=== PATIENT | female | born 1990 | race Caucasian/White ===

== ENCOUNTER 2017-06-18 02:17 | Day surgery (SDC) | payer BC ==
[2017-06-18] MEDS ORDERED: Ondansetron 4 MG/2 ML SDV IVPUSH ONE (02:30)
[2017-06-18] MEDS ORDERED: Sodium Chloride 0.9% 1,000 ML IV ONE (02:32)
--- NOTE | 2017-06-18 03:02 | EDM.PDOC ---
<Deven Fuchs - Last Filed: 06/18/17 06:52> ED HPI GENERAL MEDICAL PROBLEM - General Chief Complaint: Abdominal Pain Stated Complaint: ABDOMINAL PAIN, VOMITING Time Seen by Provider: 06/18/17 02:35 Source of Information: Reports: Patient History Limitations: Reports: No Limitations - History of Present Illness INITIAL COMMENTS - FREE TEXT/NARRATIVE: HISTORY AND PHYSICAL: History of present illness: [26-year-old female no prior abdominal history now presents to the emergency department, complaining of right upper quadrant abdominal pain. Last night patient 8 at [facility] and shortly thereafter had the onset of right upper quadrant pain which was at times severe. She had nausea with vomiting. No fevers chills sweats or shaking chills. Pain was sudden in onset. It does wax and wane. She has normal bowel and bladder habits. No flank pain. Patient does not think she is but she is not completely sure. Review of systems: As per history of present illness and below otherwise all systems reviewed and negative. Past medical history: As per history of present illness and as reviewed below otherwise noncontributory. Surgical history: As per history of present illness and as reviewed below otherwise noncontributory. Social history: No reported history of drug or alcohol abuse. Family history: As per history of present illness and as reviewed below otherwise noncontributory. Physical exam: Well-appearing patient mildly anxious clear lungs regular rate and rhythm positive right abdominal tenderness, right upper quadrant greater than right lower quadrant. No guarding or rebound normal bowel sounds remainder abdomen is benign . No CVA tenderness. HEENT: Atraumatic, normocephalic, pupils reactive, negative for conjunctival pallor or scleral icterus, mucous membranes moist, throat clear, neck supple, nontender, trachea midline. Lungs: Clear to auscultation, breath sounds equal bilaterally, chest nontender. Heart: S1S2, regular, negative for clicks, rubs, or JVD. Abdomen: Soft, nondistended, Negative for masses or hepatosplenomegaly. Negative for costovertebral tenderness. Pelvis: Stable nontender. Genitourinary: Deferred. Rectal: Deferred. Extremities: Atraumatic, negative for cords or calf pain. Neurovascular unremarkable. Neuro: Awake, alert, oriented. Exam nonfocal. Diagnostics: [Ultrasound the abdomen and full labs pending. Therapeutics: []Analgesia and IV fluids given Impression: Abdominal pain leukocytosis Adnexal cyst Plan: [Signs and symptoms consistent with possible biliary colic after eating chicken wings. Patient is stable in the emergency department. Subcostal tenderness right upper quadrant And mild right abdominal tenderness. No guarding or rebound.Full workup pending] patient with elevated white blood cell count at 17. Ultrasound unremarkable with no evidence of gallbladder pathology. Remainder of labs benign. Urinalysis not consistent with infection. CT the abdomen and pelvis pending CT shows enlarged appendix but without pericecal inflammatory changes. On reevaluation she has no right upper quadrant tenderness and mild right lower quadrant tenderness. No guarding or rebound. Normal bowel sounds. She is hemodynamically stable IV fluids will be continued. Case discussed with Dr. Timothy Eid surgery bi consultant. Dr. Eid's aware the history and findings and will see the patient in the emergency department for stat consultation and disposition.Case signed out to Dr. China Jacques to assume care collaborate with Dr. Eid and disposition patient. Definitive disposition and diagnosis as appropriate pending reevaluation and review of above. abdominal area Pain Score (Numeric/FACES): 8 - Related Data Allergies Allergy/AdvReac Type Severity Reaction Status Date / Time amoxicillin [Amoxicillin] Allergy Cannot Verified 06/18/17 02:25 Remember Penicillins Allergy Cannot Verified 06/18/17 02:25 Remember venom-honey bee Allergy Other Verified 06/18/17 02:25 [bee venom (honey bee)] Home Meds: Home Meds . [No Known Home Meds] 06/18/17 [History] Past Medical History HEENT History: Reports: None Cardiovascular History: Reports: None Respiratory History: Reports: Asthma Gastrointestinal History: Reports: None Genitourinary History: Reports: None CREDIT SPECIALIST History: Reports: Musculoskeletal History: Reports: None Neurological History: Reports: None Psychiatric History: Reports: Anxiety Endocrine/Metabolic History: Reports: None Hematologic History: Reports: None Immunologic History: Reports: None Oncologic (Cancer) History: Reports: None Dermatologic History: Reports: None - Infectious Disease History Infectious Disease History: Reports: None - Past Surgical History HEENT Surgical History: Reports: Tonsillectomy Social & Family History - Family History Family Medical History: Noncontributory - Tobacco Use Smoking Status *Q: Never Smoker Second Hand Smoke Exposure: No - Caffeine Use Caffeine Use: Reports: Coffee - Alcohol Use Days Per Week of Alcohol Use: 0 Number of Drinks Per Day: 0 Total Drinks Per Week: 0 - Recreational Drug Use Recreational Drug Use: No Drug Use in Last 12 Months: No ED ROS GENERAL - Review of Systems Review Of Systems: See Below (History of present illness) ED EXAM, GENERAL - Physical Exam Exam: See Below (History of present illness) Course - Vital Signs Last Recorded V/S: Last Vital Signs Temp 36.8 C 06/18/17 06:44 Pulse 59 L 06/18/17 06:44 Resp 18 06/18/17 06:44 BP 110/56 L 06/18/17 06:44 Pulse Ox 98 06/18/17 06:44 - Orders/Labs/Meds Orders: Active Orders 24 hr Category Date Time Status Patient Status [ADT] Stat ADT 06/18/17 10:11 Ordered Notify Provider Consults [RC] ASDIRECTED Care 06/18/17 07:33 Active Consult to Physician [CONS] Stat Cons 06/18/17 07:32 Active Abdomen Pelvis w Cont [CT] Stat Exams 06/18/17 05:29 Taken Gallbladder [Abdomen Ltd] [US] Stat Exams 06/18/17 03:03 Taken Lactated Ringers @ 125 MLS/HR(1,000ml) Med 06/18/17 10:15 Ordered Lactated Ringers [Ringers, Lactated] 1,000 ml IV ASDIRECTED Sodium Chloride 0.9% [Normal Saline] 1,000 ml Med 06/18/17 06:45 Active IV ASDIRECTED cefOXitin [Mefoxin in Dextrose,Iso-Osm 2 GM/50 ML] 2 gm Med 06/18/17 10:12 Ordered Premix Bag 1 bag IV ONETIME Medication Orders Sodium Chloride (Normal Saline) 1,000 mls @ 999 mls/hr IV ASDIRECTED EFFIE Last Admin: 06/18/17 06:43 Dose: 999 mls/hr Lactated Ringer's (Ringers, Lactated) 1,000 mls @ 125 mls/hr IV ASDIRECTED EFFIE Cefoxitin Sodium 2 gm/ Premix 50 mls @ 100 mls/hr IV ONETIME ONE Stop: 06/18/17 10:41 Labs: Laboratory Tests 06/18/17 06/18/17 06/18/17 Range/Units 02:30 02:30 02:30 WBC 17.46 H (4.0-11.0) K/uL RBC 4.91 (4.30-5.90) M/uL Hgb 14.1 (12.0-16.0) g/dL Hct 41.7 (36.0-46.0) % MCV 84.9 (80.0-98.0) fL MCH 28.7 (27.0-32.0) pg MCHC 33.8 (31.0-37.0) g/dL RDW Std Deviation 40.3 (28.0-62.0) fl RDW Coeff of Tony 13 (11.0-15.0) % Plt Count 396 (150-400) K/uL MPV 9.90 (7.40-12.00) fL Neut % (Auto) 80.0 (48.0-80.0) % Lymph % (Auto) 14.9 L (16.0-40.0) % [place] % (Auto) 4.7 (0.0-15.0) % Eos % (Auto) 0.3 (0.0-7.0) % Baso % (Auto) 0.1 (0.0-1.5) % Neut # (Auto) 14.0 H (1.4-5.7) K/uL Lymph # (Auto) 2.6 H (0.6-2.4) K/uL [place] # (Auto) 0.8 (0.0-0.8) K/uL Eos # (Auto) 0.1 (0.0-0.7) K/uL Baso # (Auto) 0.0 (0.0-0.1) K/uL Nucleated RBC % 0.0 /100WBC Nucleated RBCs # 0 K/uL Sodium 138 (136-146) mmol/L Potassium 3.9 (3.5-5.1) mmol/L Chloride 105 (98-110) mmol/L Carbon Dioxide 21 (21-31) mmol/L BUN 12 (6.0-23.0) mg/dL Creatinine 0.8 (0.6-1.5) mg/dL Est Cr Clr Drug Dosing 84.28 mL/min Estimated GFR (MDRD) > 60.0 ml/min Glucose 113 H (60-110) mg/dL Calcium 9.9 (8.8-10.8) mg/dL Total Bilirubin 0.9 (0.1-1.5) mg/dL AST 15 (5-40) IU/L ALT 16 (8-54) IU/L Alkaline Phosphatase 70 (40-150) Total Protein 8.1 H (6.0-8.0) g/dL Albumin 4.5 (3.5-5.0) g/dL Globulin 3.6 H (2.0-3.5) g/dL Albumin/Globulin Ratio 1.3 (1.3-2.8) Lipase (7-80) U/L Urine Color Urine Appearance Urine pH (5.0-8.0) Ur Specific [place] (1.001-1.035) Urine Protein (NEGATIVE) mg/dL Urine Glucose (UA) (NEGATIVE) mg/dL Urine Ketones (NEGATIVE) mg/dL Urine Occult Blood (NEGATIVE) Urine Nitrite (NEGATIVE) Urine Bilirubin (NEGATIVE) Urine Urobilinogen (<2.0) EU/dL Ur Leukocyte Esterase (NEGATIVE) Urine RBC (0-2/HPF) Urine WBC (0-5/HPF) Ur Epithelial Cells (NONE-FEW) Urine Bacteria (NEGATIVE) Urine Mucus (NONE-MOD) Urine HCG, Qual NEGATIVE (NEGATIVE) 06/18/17 06/18/17 Range/Units 02:30 02:30 WBC (4.0-11.0) K/uL RBC (4.30-5.90) M/uL Hgb (12.0-16.0) g/dL Hct (36.0-46.0) % MCV (80.0-98.0) fL MCH (27.0-32.0) pg MCHC (31.0-37.0) g/dL RDW Std Deviation (28.0-62.0) fl RDW Coeff of Tony (11.0-15.0) % Plt Count (150-400) K/uL MPV (7.40-12.00) fL Neut % (Auto) (48.0-80.0) % Lymph % (Auto) (16.0-40.0) % [place] % (Auto) (0.0-15.0) % Eos % (Auto) (0.0-7.0) % Baso % (Auto) (0.0-1.5) % Neut # (Auto) (1.4-5.7) K/uL Lymph # (Auto) (0.6-2.4) K/uL [place] # (Auto) (0.0-0.8) K/uL Eos # (Auto) (0.0-0.7) K/uL Baso # (Auto) (0.0-0.1) K/uL Nucleated RBC % /100WBC Nucleated RBCs # K/uL Sodium (136-146) mmol/L Potassium (3.5-5.1) mmol/L Chloride (98-110) mmol/L Carbon Dioxide (21-31) mmol/L BUN (6.0-23.0) mg/dL Creatinine (0.6-1.5) mg/dL Est Cr Clr Drug Dosing mL/min Estimated GFR (MDRD) ml/min Glucose (60-110) mg/dL Calcium (8.8-10.8) mg/dL Total Bilirubin (0.1-1.5) mg/dL AST (5-40) IU/L ALT (8-54) IU/L Alkaline Phosphatase (40-150) Total Protein (6.0-8.0) g/dL Albumin (3.5-5.0) g/dL Globulin (2.0-3.5) g/dL Albumin/Globulin Ratio (1.3-2.8) Lipase 13 (7-80) U/L Urine Color YELLOW Urine Appearance CLEAR Urine pH 6.0 (5.0-8.0) Ur Specific [place] >= 1.030 (1.001-1.035) Urine Protein TRACE (NEGATIVE) mg/dL Urine Glucose (UA) NEGATIVE (NEGATIVE) mg/dL Urine Ketones TRACE H (NEGATIVE) mg/dL Urine Occult Blood SMALL H (NEGATIVE) Urine Nitrite NEGATIVE (NEGATIVE) Urine Bilirubin NEGATIVE (NEGATIVE) Urine Urobilinogen 0.2 (<2.0) EU/dL Ur Leukocyte Esterase NEGATIVE (NEGATIVE) Urine RBC 0-3 (0-2/HPF) Urine WBC 0-1 (0-5/HPF) Ur Epithelial Cells FEW (NONE-FEW) Urine Bacteria RARE (NEGATIVE) Urine Mucus LIGHT (NONE-MOD) Urine HCG, Qual (NEGATIVE) Meds: Medications Generic Name Dose Route Start Last Admin Trade Name Freq PRN Reason Stop Dose Admin Sodium Chloride 1,000 mls @ 999 mls/hr 06/18/17 06:45 06/18/17 06:43 Normal Saline IV 999 mls/hr ASDIRECTED EFFIE Administration Lactated Ringer's 1,000 mls @ 125 mls/hr 06/18/17 10:15 Ringers, Lactated IV ASDIRECTED EFFIE Cefoxitin Sodium 2 gm/ Premix 50 mls @ 100 mls/hr 06/18/17 10:12 IV 06/18/17 10:41 ONETIME ONE Discontinued Medications Generic Name Dose Route Start Last Admin Trade Name Rhea PRN Reason Stop Dose Admin Sodium Chloride 1,000 mls @ 999 mls/hr 06/18/17 02:32 06/18/17 02:39 Normal Saline IV 06/18/17 03:32 999 mls/hr .Bolus ONE Administration Ketorolac Tromethamine 30 mg 06/18/17 03:11 06/18/17 03:14 Toradol IVPUSH 06/18/17 03:12 30 mg ONETIME ONE Administration Ketorolac Tromethamine Confirm 06/18/17 03:10 06/18/17 03:15 Toradol Administered 06/18/17 03:11 Not Given Dose 30 mg .ROUTE .STK-MED ONE Ondansetron HCl 4 mg 06/18/17 02:30 06/18/17 02:39 Zofran IVPUSH 06/18/17 02:31 4 mg ONETIME ONE Administration Departure - Departure Disposition: Refer to Observation Condition: Good, Fair Clinical Impression: Appendicitis Qualifiers: Appendicitis type: acute appendicitis Acute appendicitis type: unspecified acute appendicitis type Qualified Code(s): K35.80 - Unspecified acute appendicitis - Discharge Information Instructions: Abdominal Pain, Adult, [id number] Referrals: PCP,None [Primary Care Provider] - Forms: ED Department Discharge - My Orders Last 24 Hours: My Active Orders 06/18/17 07:32 Consult to Physician [CONS] Stat 06/18/17 07:33 Notify Provider Consults [RC] ASDIRECTED 06/18/17 10:11 Patient Status [ADT] Stat 06/18/17 10:12 cefOXitin [Mefoxin in Dextrose,Iso-Osm 2 GM/50 ML] 2 gm Premix Bag 1 bag IV ONETIME 06/18/17 10:15 Lactated Ringers @ 125 MLS/HR(1,000ml) Lactated Ringers [Ringers, Lactated] 1, 000 ml IV ASDIRECTED - Assessment/Plan Last 24 Hours: My Active Orders 06/18/17 07:32 Consult to Physician [CONS] Stat 06/18/17 07:33 Notify Provider Consults [RC] ASDIRECTED 06/18/17 10:11 Patient Status [ADT] Stat 06/18/17 10:12 cefOXitin [Mefoxin in Dextrose,Iso-Osm 2 GM/50 ML] 2 gm Premix Bag 1 bag IV ONETIME 06/18/17 10:15 Lactated Ringers @ 125 MLS/HR(1,000ml) Lactated Ringers [Ringers, Lactated] 1, 000 ml IV ASDIRECTED <China Jacques - Last Filed: 06/18/17 10:15> ED HPI GENERAL MEDICAL PROBLEM - History of Present Illness INITIAL COMMENTS - FREE TEXT/NARRATIVE: This is Dr. Jacques dictating an addendum note as I'm assume care of this patient at [address] Eid has been here and evaluated the patient and reviewed the CT scan. He does not feel that this is appendicitis and is recommending a pelvic ultrasound. He will do a formal consult so please see his note for that information. Patient is aware of this care plan and we will proceed with those results as appropriate. She clinically is improved with improved pain and actually told Dr. Eid she was hungry. We will keep her nothing by mouth. 0840: Dr Rader our radiologist contacted me and says that the pelvic ultrasound reveals no significant findings to correlate with the patient's WBC count and her pain. He has re-reviewed the CT scan done early this morning and he suspects tip appendicitis as the tip of the appendix measures [address] Eid was made aware of these results at 08 49 and he is contacting Dr. Terry who is currently the surgeon on-call to evaluate the patient for care plan. 0915: According to reports from the nurse supervisor cartography is finishing with the patient in clinic and is going to come to the ER to review the CAT scan and evaluate the patient himself. 1010: Dr Terry has seen and evaluated the patient and he will take her to same-day surgery for appendectomy. He asks for Mefoxin to be given an LR at 125. Patient is aware of this plan and accepts. Freshened: Tip appendicitis Departure - Departure Time of Disposition: 10:14 Condition: Good
[2017-06-18 03:09] LABS: CHLORIDE,CL 105 mmol/L (98-110); SODIUM,NA 138 mmol/L (136-146)
[2017-06-18] MEDS ORDERED: Ketorolac 30 MG/ML SDV ONE (03:10)
[2017-06-18] MEDS ORDERED: Ketorolac 30 MG/ML SDV IVPUSH ONE (03:11)
[2017-06-18] MEDS ORDERED: Sodium Chloride 0.9% 1,000 ML IV SCH (06:45)
--- NOTE | 2017-06-18 08:46 | US ---
EXAMINATION: Transvaginal pelvic ultrasound HISTORY: Pain COMPARISON: CT from the same day TECHNIQUE: Grayscale, spectral Doppler and color Doppler images obtained transvaginally. FINDINGS: The uterus is normal in size, contour, and echogenicity without a focal uterine mass. Endo metrial stripe thickness measures 1.2 cm. There is a small amount of free pelvic fluid. The right ovary is mildly enlarged measuring 3.5 x 2.7 x 3.3 cm and contains a few small cysts measu ring up to 2.5 cm. The left ovary appears normal in size, contour, and echogenicity. Both ovaries de monstrate normal color and spectral Doppler flow. IMPRESSION: 1. Several small right ovarian cyst noted measuring up to 2.5 cm. 2. Small amount of free pelvic fluid.
--- NOTE | 2017-06-18 09:39 | PCM.CONS ---
H&P History of Present Illness - General Date of Service: 06/18/17 Admit Problem/Dx: Abdominal pain Source of Information: Patient History Limitations: Reports: No Limitations - History of Present Illness Symptom Onset Date: 06/17/17 Duration of Symptoms: Reports: Getting Worse Location: Reports: Abdomen Quality: Reports: Pressure Severity: Moderate Improves with: Reports: Rest Worsens with: Reports: None Context: Reports: Sick Contact Associated Symptoms: Reports: Nausea/Vomiting. Denies: Cough, Fever/Chills, Loss of Appetite abdominal area Pain Score (Numeric/FACES): 8 - Related Data Allergies/Adverse Reactions: Allergies Allergy/AdvReac Type Severity Reaction Status Date / Time amoxicillin [Amoxicillin] Allergy Cannot Verified 06/18/17 02:25 Remember Penicillins Allergy Cannot Verified 06/18/17 02:25 Remember venom-honey bee Allergy Other Verified 06/18/17 02:25 [bee venom (honey bee)] Home Medications: Home Meds . 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: Musculoskeletal History: Reports: None Neurological History: Reports: None Psychiatric History: Reports: Anxiety Endocrine/Metabolic History: Reports: None Hematologic History: Reports: None Immunologic History: Reports: None Oncologic (Cancer) History: Reports: None Dermatologic History: Reports: None - Infectious Disease History Infectious Disease History: Reports: None - Past Surgical History HEENT Surgical History: Reports: Tonsillectomy Social & Family History - Family History Family Medical History: Noncontributory - Tobacco Use Smoking Status *Q: Never Smoker Second Hand Smoke Exposure: No - Caffeine Use Caffeine Use: Reports: Coffee - Alcohol Use Days Per Week of Alcohol Use: 0 Number of Drinks Per Day: 0 Total Drinks Per Week: 0 - Recreational Drug Use Recreational Drug Use: No Drug Use in Last 12 Months: No H&P Review of Systems - Review of Systems: Review Of Systems: See Below General: Denies: Fever, Chills, Decreased Appetite HEENT: Reports: No Symptoms Pulmonary: Denies: Shortness of Breath, Wheezing Cardiovascular: Denies: Chest Pain Gastrointestinal: Reports: Abdominal Pain, Flatus, Nausea, Vomiting. Denies: Anorexia, Black Stool, Bloody Stool, Constipation, Diarrhea, Distension, Hematochezia Genitourinary: Reports: No Symptoms, Dysmenorrhea Skin: Reports: No Symptoms Psychiatric: Reports: No Symptoms Neurological: Reports: No Symptoms Hematologic/Lymphatic: Reports: No Symptoms Immunologic: Reports: No Symptoms Exam - Exam Exam: See Below - Vital Signs Vital Signs: Last Vital Signs Temp 98.2 F 06/18/17 06:44 Pulse 59 L 06/18/17 06:44 Resp 18 06/18/17 06:44 BP 110/56 L 06/18/17 06:44 Pulse Ox 98 06/18/17 06:44 Weight: 202 lb 6.15 oz - Exam General: Alert, Oriented, Cooperative, Mild Distress (sleeping when I arrived. Had one dose of Toradol.) HEENT: Conjunctiva Clear, EACs Clear, EOMI, Pupils Equal, Pupils Reactive. No: Scleral Icterus Neck: Supple, Trachea Midline Lungs: Clear to Auscultation, Normal Respiratory Effort Cardiovascular: Regular Rate, Regular Rhythm. No: Tachycardia GI/Abdominal Exam: Normal Bowel Sounds, Soft, No Organomegaly, No Distention, No Mass, Tender (lower abdomen bilaterally). No: Distended, Guarding, Rigid, Rebound (Female) Exam: Normal External Exam Back Exam: Normal Inspection Extremities: Normal Inspection, Normal Range of Motion, Non-Tender Peripheral Pulses: 4+: Posterior Tibial (L), Posterior Tibial (R), Dorsalis Pedis (L), Dorsalis Pedis (R) Skin: Warm, Dry, Intact Neurological: Cranial Nerves Intact Neuro Extensive - Mental Status: Alert, Oriented x3, Normal Mood/Affect, Normal Cognition Psychiatric: Alert, Normal Affect, Normal Mood - Patient Data Lab Results Last 24 hrs: Laboratory Results - last 24 hr 06/18/17 06/18/17 06/18/17 Range/Units 02:30 02:30 02:30 WBC 17.46 H (4.0-11.0) K/uL RBC 4.91 (4.30-5.90) M/uL Hgb 14.1 (12.0-16.0) g/dL Hct 41.7 (36.0-46.0) % MCV 84.9 (80.0-98.0) fL MCH 28.7 (27.0-32.0) pg MCHC 33.8 (31.0-37.0) g/dL RDW Std Deviation 40.3 (28.0-62.0) fl RDW Coeff of Tony 13 (11.0-15.0) % Plt Count 396 (150-400) K/uL MPV 9.90 (7.40-12.00) fL Neut % (Auto) 80.0 (48.0-80.0) % Lymph % (Auto) 14.9 L (16.0-40.0) % [place] % (Auto) 4.7 (0.0-15.0) % Eos % (Auto) 0.3 (0.0-7.0) % Baso % (Auto) 0.1 (0.0-1.5) % Neut # (Auto) 14.0 H (1.4-5.7) K/uL Lymph # (Auto) 2.6 H (0.6-2.4) K/uL [place] # (Auto) 0.8 (0.0-0.8) K/uL Eos # (Auto) 0.1 (0.0-0.7) K/uL Baso # (Auto) 0.0 (0.0-0.1) K/uL Nucleated RBC % 0.0 /100WBC Nucleated RBCs # 0 K/uL Sodium 138 (136-146) mmol/L Potassium 3.9 (3.5-5.1) mmol/L Chloride 105 (98-110) mmol/L Carbon Dioxide 21 (21-31) mmol/L BUN 12 (6.0-23.0) mg/dL Creatinine 0.8 (0.6-1.5) mg/dL Est Cr Clr Drug Dosing 84.28 mL/min Estimated GFR (MDRD) > 60.0 ml/min Glucose 113 H (60-110) mg/dL Calcium 9.9 (8.8-10.8) mg/dL Total Bilirubin 0.9 (0.1-1.5) mg/dL AST 15 (5-40) IU/L ALT 16 (8-54) IU/L Alkaline Phosphatase 70 (40-150) Total Protein 8.1 H (6.0-8.0) g/dL Albumin 4.5 (3.5-5.0) g/dL Globulin 3.6 H (2.0-3.5) g/dL Albumin/Globulin Ratio 1.3 (1.3-2.8) Lipase (7-80) U/L Urine Color Urine Appearance Urine pH (5.0-8.0) Ur Specific [place] (1.001-1.035) Urine Protein (NEGATIVE) mg/dL Urine Glucose (UA) (NEGATIVE) mg/dL Urine Ketones (NEGATIVE) mg/dL Urine Occult Blood (NEGATIVE) Urine Nitrite (NEGATIVE) Urine Bilirubin (NEGATIVE) Urine Urobilinogen (<2.0) EU/dL Ur Leukocyte Esterase (NEGATIVE) Urine RBC (0-2/HPF) Urine WBC (0-5/HPF) Ur Epithelial Cells (NONE-FEW) Urine Bacteria (NEGATIVE) Urine Mucus (NONE-MOD) Urine HCG, Qual NEGATIVE (NEGATIVE) 06/18/17 06/18/17 Range/Units 02:30 02:30 WBC (4.0-11.0) K/uL RBC (4.30-5.90) M/uL Hgb (12.0-16.0) g/dL Hct (36.0-46.0) % MCV (80.0-98.0) fL MCH (27.0-32.0) pg MCHC (31.0-37.0) g/dL RDW Std Deviation (28.0-62.0) fl RDW Coeff of Tony (11.0-15.0) % Plt Count (150-400) K/uL MPV (7.40-12.00) fL Neut % (Auto) (48.0-80.0) % Lymph % (Auto) (16.0-40.0) % [place] % (Auto) (0.0-15.0) % Eos % (Auto) (0.0-7.0) % Baso % (Auto) (0.0-1.5) % Neut # (Auto) (1.4-5.7) K/uL Lymph # (Auto) (0.6-2.4) K/uL [place] # (Auto) (0.0-0.8) K/uL Eos # (Auto) (0.0-0.7) K/uL Baso # (Auto) (0.0-0.1) K/uL Nucleated RBC % /100WBC Nucleated RBCs # K/uL Sodium (136-146) mmol/L Potassium (3.5-5.1) mmol/L Chloride (98-110) mmol/L Carbon Dioxide (21-31) mmol/L BUN (6.0-23.0) mg/dL Creatinine (0.6-1.5) mg/dL Est Cr Clr Drug Dosing mL/min Estimated GFR (MDRD) ml/min Glucose (60-110) mg/dL Calcium (8.8-10.8) mg/dL Total Bilirubin (0.1-1.5) mg/dL AST (5-40) IU/L ALT (8-54) IU/L Alkaline Phosphatase (40-150) Total Protein (6.0-8.0) g/dL Albumin (3.5-5.0) g/dL Globulin (2.0-3.5) g/dL Albumin/Globulin Ratio (1.3-2.8) Lipase 13 (7-80) U/L Urine Color YELLOW Urine Appearance CLEAR Urine pH 6.0 (5.0-8.0) Ur Specific [place] >= 1.030 (1.001-1.035) Urine Protein TRACE (NEGATIVE) mg/dL Urine Glucose (UA) NEGATIVE (NEGATIVE) mg/dL Urine Ketones TRACE H (NEGATIVE) mg/dL Urine Occult Blood SMALL H (NEGATIVE) Urine Nitrite NEGATIVE (NEGATIVE) Urine Bilirubin NEGATIVE (NEGATIVE) Urine Urobilinogen 0.2 (<2.0) EU/dL Ur Leukocyte Esterase NEGATIVE (NEGATIVE) Urine RBC 0-3 (0-2/HPF) Urine WBC 0-1 (0-5/HPF) Ur Epithelial Cells FEW (NONE-FEW) Urine Bacteria RARE (NEGATIVE) Urine Mucus LIGHT (NONE-MOD) Urine HCG, Qual (NEGATIVE) Result Diagrams: 06/18/17 02:30 06/18/17 02:30 Consult PN Assessment/Plan Procedures: Procedures CHORIONIC GONADOTROPIN ASSAY (10/03/14) EMERGENCY DEPT VISIT (02/06/15) EMERGENCY DEPT VISIT (02/06/15) EXC TR-EXT B9+AMBER >4.0 CM (10/03/14) INTMD RPR S/TR/EXT 7.6-12.5 (10/03/14) RELEASE WRIST/FOREARM TENDON (11/19/14) TISSUE EXAM BY PATHOLOGIST (10/03/14) (1) Abdominal pain SNOMED Code(s): 03765113 Code(s): R10.9 - UNSPECIFIED ABDOMINAL PAIN Priority: Medium Current Visit: Yes Qualifiers: Abdominal location: lower abdomen, unspecified Qualified Code(s): R10.30 - Lower abdominal pain, unspecified (2) Leukocytosis SNOMED Code(s): 142896088, 947121380 Code(s): D72.829 - ELEVATED WHITE BLOOD CELL COUNT, UNSPECIFIED Priority: Medium Current Visit: Yes (3) Anxiety SNOMED Code(s): 50583740 Code(s): F41.9 - ANXIETY DISORDER, UNSPECIFIED Priority: Low Current Visit: No Problem List Initiated/Reviewed/Updated: Yes Plan: CT scan and report have been personally reviewed. Not classis for appendicitis. Also noted is a right ovarian cyst. Radiology suggests pelvic ultrasound which I agree with. Would complete ultrasound then will reevaluate. Thank you.
[2017-06-18] MEDS ORDERED: cefOXitin 2 GM in Premix Bag 1 BAG IV ONE ×2 (10:12→10:35)
[2017-06-18] MEDS ORDERED: Lactated Ringers 1,000 ML IV SCH ×3 (10:15→16:45)
--- NOTE | 2017-06-18 10:34 | PCM.SN ---
- Free Text/Narrative Note: pt seen, chart reviewed, consult dictated; acute appendicitis; would benefit from timely surg intervention; risks and benefits dw pt re bleeding/infection/ damage to nearby organs; pt concurs and proceed; [id number]
--- NOTE | 2017-06-18 12:16 | PCM.PREANE ---
Preanesthetic Assessment - Procedure Proposed Procedure: laparoscopic appendectomy - Anesthesia/Transfusion/Family Hx Anesthesia History: Prior Anesthesia Without Reaction Other Type of Anesthesia Reaction Comment: DENIES ANY PROBLEMS WITH ANESTHESIA Family History of Anesthesia Reaction: No Intubation History: Unknown - Review of Systems General: Other (abdominal pain, N and V) Pulmonary: No Symptoms Cardiovascular: No Symptoms Gastrointestinal: Abdominal Pain (reduced after analgesics), Nausea, Vomiting ( yesterday) Neurological: No Symptoms Other: Reports: None - Physical Assessment NPO Status Date: 06/17/17 NPO Status Time: 23:30 O2 Sat by Pulse Oximetry: 96 Respiratory Rate: 16 Vital Signs: Last Vital Signs Temp 99.3 F 06/18/17 10:55 Pulse 51 L 06/18/17 10:55 Resp 16 06/18/17 10:55 BP 107/60 06/18/17 10:55 Pulse Ox 96 06/18/17 10:55 Height: 5 ft 2 in Weight: 202 lb 6.15 oz ASA Class: 2E Mental Status: Alert & Oriented x3 Airway Class: Mallampati = 3 Dentition: Reports: Normal Dentition Thyro-Mental Finger Breadths: 3 Mouth Opening Finger Breadths: 3 ROM/Head Extension: Full Lungs: Clear to Auscultation, Normal Respiratory Effort Cardiovascular: Regular Rate, Regular Rhythm, No Murmurs - Lab Values: Laboratory Last Values WBC 17.46 K/uL (4.0-11.0) H 06/18/17 02:30 RBC 4.91 M/uL (4.30-5.90) 06/18/17 02:30 Hgb 14.1 g/dL (12.0-16.0) 06/18/17 02:30 Hct 41.7 % (36.0-46.0) 06/18/17 02:30 MCV 84.9 fL (80.0-98.0) 06/18/17 02:30 MCH 28.7 pg (27.0-32.0) 06/18/17 02:30 MCHC 33.8 g/dL (31.0-37.0) 06/18/17 02:30 RDW Std Deviation 40.3 fl (28.0-62.0) 06/18/17 02:30 RDW Coeff of Tony 13 % (11.0-15.0) 06/18/17 02:30 Plt Count 396 K/uL (150-400) 06/18/17 02:30 MPV 9.90 fL (7.40-12.00) 06/18/17 02:30 Neut % (Auto) 80.0 % (48.0-80.0) 06/18/17 02:30 Lymph % (Auto) 14.9 % (16.0-40.0) L 06/18/17 02:30 [place] % (Auto) 4.7 % (0.0-15.0) 06/18/17 02:30 Eos % (Auto) 0.3 % (0.0-7.0) 06/18/17 02:30 Baso % (Auto) 0.1 % (0.0-1.5) 06/18/17 02:30 Neut # (Auto) 14.0 K/uL (1.4-5.7) H 06/18/17 02:30 Lymph # (Auto) 2.6 K/uL (0.6-2.4) H 06/18/17 02:30 [place] # (Auto) 0.8 K/uL (0.0-0.8) 06/18/17 02:30 Eos # (Auto) 0.1 K/uL (0.0-0.7) 06/18/17 02:30 Baso # (Auto) 0.0 K/uL (0.0-0.1) 06/18/17 02:30 Nucleated RBC % 0.0 /100WBC 06/18/17 02:30 Nucleated RBCs # 0 K/uL 06/18/17 02:30 Sodium 138 mmol/L (136-146) 06/18/17 02:30 Potassium 3.9 mmol/L (3.5-5.1) 06/18/17 02:30 Chloride 105 mmol/L (98-110) 06/18/17 02:30 Carbon Dioxide 21 mmol/L (21-31) 06/18/17 02:30 BUN 12 mg/dL (6.0-23.0) 06/18/17 02:30 Creatinine 0.8 mg/dL (0.6-1.5) 06/18/17 02:30 Est Cr Clr Drug Dosing 84.28 mL/min 06/18/17 02:30 Estimated GFR (MDRD) > 60.0 ml/min 06/18/17 02:30 Glucose 113 mg/dL (60-110) H 06/18/17 02:30 Calcium 9.9 mg/dL (8.8-10.8) 06/18/17 02:30 Total Bilirubin 0.9 mg/dL (0.1-1.5) 06/18/17 02:30 AST 15 IU/L (5-40) 06/18/17 02:30 ALT 16 IU/L (8-54) 06/18/17 02:30 Alkaline Phosphatase 70 (40-150) 06/18/17 02:30 Total Protein 8.1 g/dL (6.0-8.0) H 06/18/17 02:30 Albumin 4.5 g/dL (3.5-5.0) 06/18/17 02:30 Globulin 3.6 g/dL (2.0-3.5) H 06/18/17 02:30 Albumin/Globulin Ratio 1.3 (1.3-2.8) 06/18/17 02:30 Lipase 13 U/L (7-80) 06/18/17 02:30 Urine Color YELLOW 06/18/17 02:30 Urine Appearance CLEAR 06/18/17 02:30 Urine pH 6.0 (5.0-8.0) 06/18/17 02:30 Ur Specific [place] >= 1.030 (1.001-1.035) 06/18/17 02:30 Urine Protein TRACE mg/dL (NEGATIVE) 06/18/17 02:30 Urine Glucose (UA) NEGATIVE mg/dL (NEGATIVE) 06/18/17 02:30 Urine Ketones TRACE mg/dL (NEGATIVE) H 06/18/17 02:30 Urine Occult Blood SMALL (NEGATIVE) H 06/18/17 02:30 Urine Nitrite NEGATIVE (NEGATIVE) 06/18/17 02:30 Urine Bilirubin NEGATIVE (NEGATIVE) 06/18/17 02:30 Urine Urobilinogen 0.2 EU/dL (<2.0) 06/18/17 02:30 Ur Leukocyte Esterase NEGATIVE (NEGATIVE) 06/18/17 02:30 Urine RBC 0-3 (0-2/HPF) 06/18/17 02:30 Urine WBC 0-1 (0-5/HPF) 06/18/17 02:30 Ur Epithelial Cells FEW (NONE-FEW) 06/18/17 02:30 Urine Bacteria RARE (NEGATIVE) 06/18/17 02:30 Urine Mucus LIGHT (NONE-MOD) 06/18/17 02:30 Urine HCG, Qual NEGATIVE (NEGATIVE) 06/18/17 02:30 - Allergies Allergies/Adverse Reactions: Allergies Allergy/AdvReac Type Severity Reaction Status Date / Time amoxicillin [Amoxicillin] Allergy Cannot Verified 06/18/17 02:25 Remember Penicillins Allergy Cannot Verified 06/18/17 02:25 Remember venom-honey bee Allergy Other Verified 06/18/17 02:25 [bee venom (honey bee)] - Blood Blood Available: No - Anesthesia Plan Pre-Op Medication Ordered: None - Acknowledgements Anesthesia Type Planned: General Anesthesia Pt an Appropriate Candidate for the Planned Anesthesia: Yes Alternatives and Risks of Anesthesia Discussed w Pt/Guardian: Yes Pt/Guardian Understands and Agrees with Anesthesia Plan: Yes PreAnesthesia Questionnaire HEENT History: Reports: None Cardiovascular History: Reports: None Respiratory History: Reports: Asthma Gastrointestinal History: Reports: None Genitourinary History: Reports: None CHICKEN PICKER History: Reports: Musculoskeletal History: Reports: None Neurological History: Reports: None Psychiatric History: Reports: Anxiety Endocrine/Metabolic History: Reports: None Hematologic History: Reports: None Immunologic History: Reports: None Oncologic (Cancer) History: Reports: None Dermatologic History: Reports: None - Infectious Disease History Infectious Disease History: Reports: None - Past Surgical History HEENT Surgical History: Reports: Tonsillectomy - SUBSTANCE USE Smoking Status *Q: Never Smoker Second Hand Smoke Exposure: No Days Per Week of Alcohol Use: 0 Number of Drinks Per Day: 0 Total Drinks Per Week: 0 Recreational Drug Use History: No - HOME MEDS Home Medications: Home Meds . [No Known Home Meds] 06/18/17 [History] - CURRENT (IN HOUSE) MEDS Current Meds: Current Medications Sodium Chloride (Normal Saline) 1,000 mls @ 999 mls/hr IV ASDIRECTED EFFIE Last Admin: 06/18/17 06:43 Dose: 999 mls/hr Lactated Ringer's (Ringers, Lactated) 1,000 mls @ 125 mls/hr IV ASDIRECTED EFFIE Last Admin: 06/18/17 10:18 Dose: 125 mls/hr Lactated Ringer's (Ringers, Lactated) 1,000 mls @ 125 mls/hr IV ASDIRECTED EFFIE Discontinued Medications Sodium Chloride (Normal Saline) 1,000 mls @ 999 mls/hr IV .Bolus ONE Stop: 06/18/17 03:32 Last Admin: 06/18/17 02:39 Dose: 999 mls/hr Cefoxitin Sodium 2 gm/ Premix 50 mls @ 100 mls/hr IV ONETIME ONE Stop: 06/18/17 10:41 Last Admin: 06/18/17 10:18 Dose: 100 mls/hr Cefoxitin Sodium 2 gm/ Premix 50 mls @ 100 mls/hr IV ONETIME ONE Stop: 06/18/17 11:04 Last Admin: 06/18/17 10:41 Dose: Not Given Ketorolac Tromethamine (Toradol) 30 mg IVPUSH ONETIME ONE Stop: 06/18/17 03:12 Last Admin: 06/18/17 03:14 Dose: 30 mg Ketorolac Tromethamine (Toradol) Confirm Administered Dose 30 mg .ROUTE .STK- MED ONE Stop: 06/18/17 03:11 Last Admin: 06/18/17 03:15 Dose: Not Given Ondansetron HCl (Zofran) 4 mg IVPUSH ONETIME ONE Stop: 06/18/17 02:31 Last Admin: 06/18/17 02:39 Dose: 4 mg
[2017-06-18] MEDS ORDERED: Iopamidol 755 Mg/ML 100 ML Bottle IV ONE (12:17)
[2017-06-18] MEDS ORDERED: Midazolam 1 MG/ML 2 ML SDV ONE (13:47)
[2017-06-18] MEDS ORDERED: Lidocaine 2% 5 ML SDV ONE (13:47)
[2017-06-18] MEDS ORDERED: Propofol 200 MG/20 ML SDV ONE ×2 (13:47→13:51)
[2017-06-18] MEDS ORDERED: fentaNYL 250 MCG/5 ML SDV ONE (13:48)
[2017-06-18] MEDS ORDERED: cefOXitin 0 ML ONE (14:20)
[2017-06-18] MEDS ORDERED: Octyl 2-Cyanoacrylate 1 Tube ONE (14:21)
[2017-06-18] MEDS ORDERED: Bupivacaine 0.5% 30 ML SDV ONE (14:21)
[2017-06-18] MEDS ORDERED: HYDROmorphone 2 MG/ML Syringe IVPUSH ONE (15:14)
[2017-06-18] MEDS ORDERED: fentaNYL 100 MCG/2 ML SDV ONE ×2 (15:20→15:34)
[2017-06-18] MEDS ORDERED: Ondansetron 4 MG/2 ML SDV IVPUSH PRN (16:31)
[2017-06-18] MEDS ORDERED: Acetaminophen/oxyCODONE 325-5 MG Tab PO PRN (16:32)
--- NOTE | 2017-06-18 16:39 | PCM.OPNOTE ---
- General Post-Op/Procedure Note Date of Surgery/Procedure: 06/18/17 Operative Procedure(s): lap appy Findings: appendix is hard, indurated at the distal 1/2, cw acute appendicitis, perf is not observed; [id number] Pre Op Diagnosis: ACUTE appendicitis Post-Op Diagnosis: Same Anesthesia Technique: General ET Tube Primary Surgeon: Robert Terry Pathology: sent Complications: None Condition: Stable Free Text/Narrative:: Intake & Output 06/18/17 06/18/17 06/18/17 06:59 14:59 22:59 Output Total 400 Balance -400
[2017-06-18] MEDS ORDERED: Morphine 10 MG/ML Syringe IVPUSH PRN (16:40)
[2017-06-18] MEDS: fentaNYL 100 MCG/2 ML SDV IVPUSH PRN ×2 (16:46→17:10)
--- NOTE | 2017-06-18 17:07 | PCM.POSTAN ---
POST ANESTHESIA ASSESSMENT - MENTAL STATUS Mental Status: Alert, Oriented - VITAL SIGNS Pulse Rate: 69 SaO2: 99 Resp Rate: 12 Blood Pressure: 113/69 - RESPIRATORY Respiratory Status: Respiratory Rate WNL, Airway Patent, O2 Saturation Stable, Supplemental Oxygen (per NC) - CARDIOVASCULAR CV Status: Pulse Rate WNL, Blood Pressure Stable - GASTROINTESTINAL GI Status: No Symptoms - PAIN Pain Score: 5 (Has been sleeping, but awakes saying pain is a 5 - will give one more dose of Fentanyl and discharge to phase II) - POST OP HYDRATION Hydration Status: Adequate & Stable - OBSERVATIONS Free Text/Narrative:: Pt resting without distress. VSS. No apparent anesthesia complications.
--- NOTE | 2017-06-18 19:21 | US ---
EXAM DATE: 06/18/17 PATIENT'S AGE: 26 Patient: NIRANJAN SKINNER Facility: [place], [place] Site . Site : 1990 Study: US Abdomen [id number]/4/2017 4:11:45 AM Ordering Physician: Jef Carvalho Final Report: INDICATION: Right upper quadrant pain TECHNIQUE: Ultrasound abdomen limited. Sonographic images of the right upper quadrant were obtained using malone-scale and color Doppler images. COMPARISON: None FINDINGS: Liver: Normal in size. Increased echoed intensity of the liver. No masses. No intrahepatic biliary dilatation. Gallbladder: No stones or sludge. Normal wall thickness. No pericholecystic fluid. Common bile duct: 4 mm. Pancreas: Suboptimal visualization due to patient body habitus. Right kidney: 12.3 x 3.9 x 5.1 cm. Normal echotexture and cortex. No masses, stones, or hydronephrosis. Vasculature: Proximal abdominal aorta and IVC are normal. IMPRESSION: No acute abnormality. Note that there is suboptimal visualization of the pancreas. Hepatic steatosis. Dictated by Mikayla Vora MD @ Jun 18 2017 4:30AM (Electronic Signature) Report Signed by Proxy. [facility] HOSPITALEliana
--- NOTE | 2017-06-18 19:22 | CT ---
EXAM DATE: 06/18/17 PATIENT'S AGE: 26 Patient: NIRANJAN SKINNER Facility: [place], [place] Site . Site : 1990 Study: CT Abdomen/Pelvis [id number]/2017 5:56:08 AM Ordering Physician: Jef Carvalho Final Report: INDICATION: Right upper quadrant abdominal pain. Comparison: Ultrasound examination of the right upper quadrant of the abdomen June 18, 2017. Technique: CT abdomen and pelvis with intravenous contrast; no oral contrast; coronal and sagittal reformats. Findings: No abnormal intra pulmonary nodular densities through the lung bases . No evidence of pleural effusion. Normal size cardiac silhouette without any evidence of pericardial effusion . No focal hepatic or splenic pathology. No pancreatic pathology. Gallbladder is unremarkable. No adrenal pathology. Symmetric perfusion of both the kidneys without any obstructive uropathy or perinephric pathology. Circumaortic renal collar normal variant. No retroperitoneal lymphadenopathy. No evidence of abdominal or pelvic ascites. Appendix is enlarged measuring 12.6 mm in diameter as measured on slice 37 of series 203. No periappendiceal inflammatory changes identified. No appendicolith. 2.5 cm cyst identified in the right adnexa. No free fluid identified in the pelvis. Minimal thickening of the peritoneal lining in the right mid and lower abdomen with haziness of the mesenteric fat. Impression: 1. 2.5 cm cyst in the right adnexa. 2. Enlarged appendix without any periappendiceal inflammatory changes. 3. Minimal thickening and haziness of the peritoneal lining in the right mid and lower abdomen extending to the right adnexa and this conceivably could cause patient`s abdominal pain. 4. If clinically needed ,suggest obtaining transvaginal and transabdominal pelvic ultrasound for further evaluation. Please note that all CT scans at this facility use dose modulation, iterative reconstruction, and/or weight-based dosing when appropriate to reduce radiation dose to as low as reasonably achievable. Dictated by Jessica Sales MD @ Jun 18 2017 6:18AM (Electronic Signature) Report Signed by Proxy. [facility]ENTEREliana
[2017-06-18 21:40] VITALS: BP 135/83
--- NOTE | 2017-06-18 22:12 | PCM48HPAN ---
Post Anesthesia Note - EVALUATION WITHIN 48HRS OF ANESTHETIC Vital Signs in Normal Range: Yes Patient Participated in Evaluation: Yes Respiratory Function Stable: Yes Airway Patent: Yes Cardiovascular Function Stable: Yes Hydration Status Stable: Yes Pain Control Satisfactory: Yes Nausea and Vomiting Control Satisfactory: Yes Mental Status Recovered: Yes
--- NOTE | 2017-06-21 11:47 | OR ---
SURGEON: Robert Terry MD DATE OF PROCEDURE: 06/18/2017 PREOPERATIVE DIAGNOSIS: Acute appendicitis. POSTOPERATIVE DIAGNOSIS: Acute appendicitis. PROCEDURE PERFORMED: Laparoscopic appendectomy. COMPLICATIONS: None. FINDINGS: Appendix is very hard and dilated at distal one-half, consistent with acute appendicitis, perforation is not observed. DESCRIPTION OF PROCEDURE: The patient was taken to the operating room, placed in the supine position. Upon induction of general endotracheal anesthesia, the patient's abdomen was prepped and draped in a sterile fashion. Bucio was inserted. Timeout has been called, patient identified, procedure identified and antibiotic identified. Using a skin scalpel, a lower midline incision was made, beveled to the right of the umbilicus and extended a couple fingers above the umbilicus. The abdomen was entered in a standard fashion. Upon gaining entrance to the peritoneal cavity, first examined the liver. It was grossly normal and no abnormality. The NG tube was in good position. The bowel was then packed and was cephalic. With packing, this was a little behind the cecum and the right colon. Attention first to mobilization of the right colon and abdominal wall, mobilized white line of [place] and this was taken all the way to the hepatic flexure almost. It does not involve the hepatic flexure. Then mobilized the appendix, the mesoappendix and the TI was amputated at about 6 inches from the TI. The mesentery was transected and then the colon was also transected. The two of them were brought together creating a side to side anastomosis with functional end to end by using ISREAL-6 and TA60. Upon finishing, there is a generous donut and mesentery was repaired with the use of 3-0 Vicryl. Omentum pulled down. Good hemostasis upon finishing surgery and abdomen closed with double-stranded PDS. Skin was approximated by the use of skin toshia. Specimen was passed off the field. At the conclusion of the surgery, before closing the abdominal wound, instrument count and sponge count were done and were correct. The patient was awakened, extubated and transferred to recovery in hemodynamically stable condition. The patient tolerated the procedure well. There were no intraoperative complications. Dr. Terry was present through the whole procedure. Intraoperative findings as dictated above. Also note is, the patient had hemorrhagic cysts and lots of cysts on the right ovary as consistent with CAT scan observation. As always, thank you for the kind referral. STALIN / SAMMY /[id number]
--- NOTE | 2017-06-21 11:47 | HP ---
DATE OF : 1990 PRIMARY CARE PHYSICIAN: None PCP Consult was called. The patient was seen shortly after concerning question of acute appendicitis. HISTORY OF PRESENT ILLNESS: The patient is a 26-year-old lady who complained over a 24-hour history of acute onset of right upper quadrant pain and seeks help in the emergency room and workup included ultrasound, transvaginal ultrasound and CAT scan. On initial reading, it was mildly dilated appendix with no stranding fat and right ovarian cyst and subsequent workup suggested that it is consistent with typical appendicitis and Surgery was then consulted. The patient remarked that "I hurt really bad" when she came into the emergency room, and pain is 9/10 in right upper quadrant and nauseated, denied prior episode and denied fever, chill, or diarrhea. Denied dysuria. The patient was getting a ride into the emergency room when the car stopped in front of the traffic night, she did not feel more pain. PAST MEDICAL HISTORY: Significant for no diabetes, MD, CVA, or hypertension. PAST SURGICAL HISTORY: Normal vaginal delivery x2. No other surgery. ALLERGIES: Please refer to nursing notes for details. MEDICATION: Please refer to nursing notes for details. FAMILY HISTORY: Noncontributory. PHYSICAL EXAMINATION: GENERAL: A very pleasant, young lady, in fact very comfortably resting on stretcher and also able to ambulate in the room with little discomfort. HEENT: Normocephalic, atraumatic. Sclerae anicteric. LUNGS: Clear to auscultation. HEART: Regular rate and rhythm. ABDOMEN: Soft, nondistended. No pulsating tender in the midline abdominal structure. Mild tenderness on epigastrium, right upper quadrant, right lower quadrant and left lower quadrant. The patient used a pain scale of 4 or 5 and the most painful one is probably around the right lower quadrant. The patient had this thing a bit before giving the answer. I asked her to jump up and down, she tried very hard, no pain. LABORATORY DATA: Upon consultation, white count is 17. IMPRESSION: CAT scan, positive appendicitis with no rupture, elevated white count, pretty high at 17 and nausea and vomiting 12 hours ago. Although examination is equivocal, but probably because patient is on pain medication and the patient remarked that it was 9/10 when she came into the emergency room. So overall patient's examination, imaging study and clinical history and physical is consistent of acute appendicitis. The patient would benefit from surgical intervention. We will proceed with laparoscopic appendectomy and possible open. Risks and benefits were discussed with the patient including bleeding, infection, and possible damage to nearby organs. Other options include observation and no surgery and all has been discussed with patient and patient agreed and concurs and proceeded with surgical intervention. We will proceed LR 125 and Mefoxin IV 2 g and proceeded to surgery on a timely manner. Thank you for the kind referral. STALIN CHRISTIANSON /[id number]
== END 2017-06-18 21:04 | disposition home or self-care (01) ==
LOC: MW.ED 02:17 → MW.SDS 10:41 → MW.MS 16:26 → MW.SDS 21:04
PROVIDERS: ATTEND Surgery
PROC: 0DTJ4ZZ Resection of Appendix, Percutaneous Endoscopic Approach (ICD-10-PCS; principal; 2017-06-18)
DX: K35.80 Unspecified acute appendicitis (principal); J45.909 Unspecified asthma, uncomplicated; Z88.0 Allergy status to penicillin; Z91.030 Bee allergy status; Z90.89 Acquired absence of other organs
CPT/HCPCS: 44970; 74177; 76705; 76856; 80053; 81001; 81025; 83690; 85025; 96361; 96365; 96375; 99285; A9270; J1885; J2250; J2405; J3010; J7040; J7120; Q9967; 00840; 88304; J0694; J2704